=== PATIENT | female | born 2000 | race African-American/Black ===

== ENCOUNTER 2020-08-20 18:21 | Emergency (ER) | payer OTHER, SELFPAY ==
--- NOTE | 2020-08-20 18:25 | ED.URI ---
HPI - URI/Sore Throat General Chief Complaint: Upper Respiratory Infection Stated Complaint: Cold Sx Time Seen by Provider: 08/20/20 18:41 Source: patient and RN notes reviewed Mode of arrival: ambulatory Limitations: no limitations History of Present Illness HPI Narrative: 19-year-old female presents with concern for 2-day history of nasal congestion, rhinorrhea, hot sweats, cold flashes, fatigue. She denies sore throat, cough, fever, body aches. Reports she has been taking Mucinex, vitamin C, zinc and drinking orange juice. Denies any known sick contacts. MD elicited complaint: nasal congestion Related Data Home Medications Medication Instructions Recorded Confirmed albuterol 1 mcg INHALATION 08/20/20 Allergies Allergy/AdvReac Type Severity Reaction Status Date / Time No Known Allergies Allergy Verified 08/20/20 18:40 Review of Systems Review of Systems: Narrative: CONSTITUTIONAL: Denies malaise or fever. Reports chills, sweats, fatigue EYES: Denies visual changes, redness, or discharge. ENT: Reports rhinorrhea, congestion. Denies sinus pain, otalgia and sore throat. CARDIOVASCULAR: Denies chest pain, palpitations, or edema. RESPIRATORY: Denies cough or dyspnea. GASTROINTESTINAL: Denies abdominal pain, nausea, vomiting, diarrhea SKIN: Denies rash or itching. MUSCULOSKELETAL: Denies myalgia. NEUROLOGIC: Denies headache. All systems reviewed & are unremarkable except as noted in HPI and below PMFSH Social History Social History Gender identity (if verbalized by the patient): Female Comments At time of signature, agree with nursing past medical, surgical, social and family history. There is no relevant family history pertinent to the presenting complaint Exam Narrative: Exam Narrative: GENERAL: Well-appearing, well-nourished, and in no acute distress. HEAD: Normocephalic EYES: PERRLA, conjunctivae clear ENT: Nares clear, turbinates edematous and erythematous, clear discharge. Mucous membranes moist. TM pearly jameson with dull light reflex bilaterally; no tragal tenderness. Oropharynx not erythematous without lesions. Tonsils not enlarged and without exudate, no drooling, no hoarseness, no trismus, uvula midline. NECK: Supple. No lymphadenopathy CHEST: Clear to auscultation, breath sounds equal. No wheezing, rhonchi, rales, or stridor. No respiratory distress, speaks in full sentences. HEART: Regular rate and rhythm. No murmur heard. SKIN: Warm, dry, no rash. NEURO: Alert and oriented x3. PSYCH: Normal mood and affect Course Course Emergency Course: Patient is aware of diagnosis, understands and agrees to treatment plan. Anticipatory guidance given. Patient agrees to follow-up as directed and is aware of reasons to seek care at the emergency department. Portions of this record may have been created with voice recognition software Vital Signs Vital signs: Vital Signs Temperature 98.9 F 08/20/20 18:33 Pulse Rate 78 08/20/20 18:33 Respiratory Rate 16 08/20/20 18:33 Blood Pressure 119/72 08/20/20 18:33 Pulse Oximetry 99 08/20/20 18:33 Temperature 98.9 F 08/20/20 18:33 Pulse Rate 78 08/20/20 18:33 Respiratory Rate 16 08/20/20 18:33 Blood Pressure 119/72 08/20/20 18:33 Pulse Oximetry 99 08/20/20 18:33 Reviewed. MDM - URI/Sore Throat MDM Narrative Medical decision making narrative: Differential diagnosis considered: Stinson virus, strep pharyngitis, allergic rhinitis, upper respiratory tract infection, sinusitis, rhinosinusitis, nasopharyngitis. viral pharyngitis, otitis media, otitis externa, pneumonia, bronchitis, viral cough syndrome, viral syndrome, and influenza. Exam findings show no acute concerns or changes; patient is non-toxic appearing and is in no distress. Patient is appropriate for outpatient treatment and follow-up. Critical Care Time Critical Care Time Critical Care Time: No Discharge Plan Discharge Clinical Impression: Upper respiratory infection
[2020-08-20 18:33] VITALS: BP 119/72; PULSE 78; RESP 16; TEMP 37.2; O2SAT 99
== END 2020-08-20 18:58 | disposition home or self-care (01) ==
PROVIDERS: Emergency Provider Nurse Practitioner
DX: J06.9 Acute upper respiratory infection, unspecified (principal); Z20.828 Contact with and (suspected) exposure to other viral communicable diseases; J45.909 Unspecified asthma, uncomplicated
CPT/HCPCS: 99213; G0463

== ENCOUNTER 2020-08-21 08:00 | Outpatient (NON) | payer OTHER, SELFPAY ==
[2020-08-21 22:02] LABS: SARS-CoV-2 RNA PCR Negative
== END 2020-08-21 08:01 ==
PROVIDERS: Visit Provider Nurse Practitioner
DX: Z20.828 Contact with and (suspected) exposure to other viral communicable diseases (principal); J06.9 Acute upper respiratory infection, unspecified
CPT/HCPCS: 87635; C9803; U0003

== ENCOUNTER 2020-09-15 14:58 | Emergency (ER) | payer OTHER, SELFPAY ==
--- NOTE | ~2020-09-15 | XR_ITS ---
EXAMINATION: XR chest 2V DATE: 09/15/2020 15:45 INDICATION: Nonproductive cough. TECHNIQUE: Frontal and lateral views of the chest were obtained. COMPARISON: Chest single view 07/01/2017, chest CT 07/01/2017 FINDINGS: The chest demonstrates clear lungs without pneumonia, pleural effusion, or pneumothorax. Th e heart size is normal. IMPRESSION: 1. No acute cardiopulmonary disease. Reviewed, dictated and finalized at [facility]
[2020-09-15 15:10] VITALS: BP 102/81; PULSE 108; RESP 16; TEMP 38; O2SAT 98
--- NOTE | 2020-09-15 15:14 | ED.URI ---
HPI - URI/Sore Throat General Chief Complaint: Upper Respiratory Infection Stated Complaint: SOB Time Seen by Provider: 09/15/20 15:14 Source: patient Mode of arrival: ambulatory Limitations: no limitations History of Present Illness HPI Narrative: Rosaline Claire is a 19 yo female - with URI symptoms of fever, congestion. Fever today 100.3, not taken anything for fever , feels congested and tired . tested for covid on 08/21, negative, states has been quarantined since the test ; states that she wants to be evaluated Related Data Home Medications Medication Instructions Recorded Confirmed albuterol 2 mcg INHALATION DAILY 08/20/20 09/15/20 Allergies Allergy/AdvReac Type Severity Reaction Status Date / Time No Known Allergies Allergy Verified 09/15/20 15:04 Review of Systems Review of Systems: Narrative: CONSTITUTIONAL: has fever, chills, sweats. EYES: Denies visual changes, redness, discharge. ENT: Denies rhinorrhea, congestion, sore throat, otalgia. CARDIOVASCULAR: Denies chest pain, palpitations, edema. RESPIRATORY: Denies dyspnea, mild wheezing, mild cough GASTROINTESTINAL: Denies abdominal pain, nausea, vomiting, diarrhea. GENITOURINARY: Denies dysuria, hematuria, abnormal discharge SKIN: Denies rash or itching. NEUROLOGIC: Denies numbness, or focal weakness. PSYCHIATRIC: Denies anxiety or depression. PMFSH Past Medical History Medical History Asthma Family History Family History Other Diabetes mellitus Hypertension Social History Social History Smoking status: Never smoker Alcohol intake: never Gender identity (if verbalized by the patient): Female Comments At time of signature, I agree with nursing past medical, surgical, social and family history. There is no relevant family history pertinent to the presenting complaint. Exam Narrative: Exam Narrative: GENERAL: This is a well-nourished, well-developed patient, in mild distress. HEAD: normocephalic, atraumatic. EYES: Sclera clear/white. Vision is grossly intact. EARS: External ears normal, auditory canals clear and without drainage, TMs normal without perforation. Hearing grossly intact. NOSE: External nose normal without nasal discharge, nares with redness, has rhinorrhea. THROAT: Mucous membranes moist, posterior pharynx erythema NECK: Neck supple, non-tender CARDIOVASCULAR: Regular rate and rhythm without murmurs, gallops, or rubs. RESPIRATORY: Cloarse to auscultation. Breath sounds equal bilaterally. No wheezes, rales, or rhonchi. GASTROINTESTINAL: Abdomen soft, non-tender, SKIN: warm, intact with no suspicious lesions or rash, good texture and turgor. NEURO: awake, alert, and oriented to person, place and time. There were no obvious focal neurologic abnormalities. Steady gait EXTREMITIES: Normal range of motion. BACK: Nontender without deformity Course Course Emergency Course: Patient was tested for Covid 2 weeks ago and has been in quarantine. Today has cough and fever, feeling achy Flu swab- neg a/b; chest Xray result: no acute cardiopulmonary process Patient instructed to take Tylenol or ibuprofen for fever; hydrate well- started on prednisone, Robitussin - has inhaler at home Vital Signs Vital signs: Vital Signs Temperature 100.4 F H 09/15/20 15:10 Pulse Rate 108 H 09/15/20 15:10 Respiratory Rate 16 09/15/20 15:10 Blood Pressure 102/81 09/15/20 15:10 Pulse Oximetry 98 09/15/20 15:10 Temperature 100.4 F H 09/15/20 15:10 Pulse Rate 108 H 09/15/20 15:10 Respiratory Rate 16 09/15/20 15:10 Blood Pressure 102/81 09/15/20 15:10 Pulse Oximetry 98 09/15/20 15:10 MDM - URI/Sore Throat Differential Diagnosis Differential diagnosis: Likely upper respiratory infection, otitis media, sinusitis, pharyngitis and other L
== END 2020-09-15 16:00 | disposition home or self-care (01) ==
LOC: EXPCOLL 15:04
PROVIDERS: Emergency Provider Nurse Practitioner
DX: J06.9 Acute upper respiratory infection, unspecified (principal); J45.909 Unspecified asthma, uncomplicated
CPT/HCPCS: 71046; 87804; 99213; G0463

== ENCOUNTER 2022-10-07 16:58 | Emergency (ER) | payer OTHER, SELFPAY ==
[2022-10-07 17:05] VITALS: BP 106/62; PULSE 99; RESP 16; TEMP 37.2; O2SAT 99
--- NOTE | 2022-10-07 17:18 | ED.SKABFB ---
HPI - Skin/Abscess/Foreign Bdy General Chief complaint: Skin/Abscess/Foreign Body Stated complaint: rash Time Seen by Provider: 10/07/22 17:18 Source: patient Mode of arrival: ambulatory Limitations: no limitations History of Present Illness HPI narrative: 22-year-old female presenting for complaint of rash to body, onset last night. She states she woke in the night with itching to the hands, arms, and shoulders. She states she had lip swelling last night and a cough with throat tightness. This has since resolved after taking Benadryl today. She denies known exposure. She endorses sensitive skin and states she stayed with her boyfriend but was told he washed the linens with dye free detergent. Currently reports a few scattered red raised lesions to arms and chest. Denies shortness of breath, wheezing, nausea; lip, tongue, throat swelling or itching. Related Data Allergies Allergy/AdvReac Type Severity Reaction Status Date / Time No Known Allergies Allergy Verified 10/07/22 17:10 Review of Systems Review of Systems: CONSTITUTIONAL: Denies body aches, fever, chills, or sweats. EYES: Denies visual changes, redness, or discharge. ENT: Denies rhinorrhea, congestion CARDIOVASCULAR: Denies chest pain, palpitations, or edema. RESPIRATORY: Denies cough or dyspnea. GASTROINTESTINAL: Denies abdominal pain, nausea, vomiting, or diarrhea. SKIN: per HPI MUSCULOSKELETAL: Denies back pain, joint pain, or myalgia. NEUROLOGIC: Denies headache, numbness, tingling, or weakness. [facility] Past Medical History Medical History Asthma Family History Family History Other Diabetes mellitus Hypertension Social History Social History Smoking status: Never smoker Alcohol intake: never Gender identity (if verbalized by the patient): Female Comments At time of signature, I have reviewed and agree with nursing past medical, surgical, social and family history unless otherwise noted. Please see nursing chart for further information. There is no relevant family history pertinent to the presenting complaint Exam Narrative: GENERAL: Well-appearing HEAD: Normocephalic, atraumatic. EYES: conjunctivae clear, and EOMI. ENT: Mucous membranes moist. Oropharynx without edema, erythema or lesions. NECK: Supple. No lymphadenopathy CHEST: Clear to auscultation. HEART: Regular rate and rhythm. SKIN: Warm, dry. Scattered areas of urticaria to arms and upper shoulders; reviewed pictures of urticaria and lip swelling from the night NEURO: Alert and oriented x3. Course Course Emergency Course: Patient is aware of diagnosis, understands and agrees to treatment plan. Anticipatory guidance given. Patient agrees to follow-up as directed and is aware of reasons to seek care at the emergency department. Portions of this record may have been created with voice recognition software Level of Care: Express Care Visit Vital Signs Vital signs: Vital Signs Temperature 99.0 F 10/07/22 17:05 Pulse Rate 99 10/07/22 17:05 Respiratory Rate 16 10/07/22 17:05 Blood Pressure 106/62 10/07/22 17:05 Pulse Oximetry 99 10/07/22 17:05 Oxygen Delivery Room Air 10/07/22 17:05 Temperature 99.0 F 10/07/22 17:05 Pulse Rate 99 10/07/22 17:05 Respiratory Rate 16 10/07/22 17:05 Blood Pressure 106/62 10/07/22 17:05 Pulse Oximetry 99 10/07/22 17:05 Oxygen Delivery Room Air 10/07/22 17:05 Reviewed MDM - Skin/Abscess/Foreign Bdy MDM Narrative Medical decision making narrative: Advised supportive measures and signs/symptoms to go to the ER. Pt is appropriate for outpt treatment and f/u. Instructed patient to go to nearest ER immediately for any worsening symptoms including but not limited to: fever, sore throat, chest pain, trouble breathing, o
== END 2022-10-07 17:30 | disposition home or self-care (01) ==
PROVIDERS: Emergency Provider Nurse Practitioner Family
DX: L50.9 Urticaria, unspecified (principal)
CPT/HCPCS: 99213; G0463

== ENCOUNTER 2023-02-18 16:22 | Emergency (ER) | payer OTHER, SELFPAY ==
--- NOTE | ~2023-02-18 | CT_ITS ---
CT of the Abdomen and Pelvis: Indication: Abdominal pain Technique: 2.5 mm axial scans were obtained through the abdomen and pelvis following intravenous adm inistration of 100 cc of Omnipaque 350. Dose reduction technique was used on this scan by utilizing a utomated exposure control and iterative reconstruction technique. The dose-length product (DLP) was 3 39.61 mGy-cm. Findings: Scans through the lung bases are unremarkable. The liver, spleen, pancreas, gallbladder, adrenals and kidneys are within normal limits. No evidence of aortic aneurysm. No lymphadenopathy. No bowel obstruction or bowel wall thickening. There is no evidence to suggest acute appendicitis. Images through the pelvis were performed. Urinary bladder unremarkable. No adnexal mass seen. No asci victorino. Impression: No significant abnormalities seen. Reviewed, dictated and finalized at [facility]. Impression: No significant abnormalities seen.
--- NOTE | ~2023-02-18 | US_ITS ---
Pelvic ultrasound. Clinical History: Left lower quadrant pain Technique: Realtime transabdominal and transvaginal scanning of the pelvis was performed. Color flow Doppler and Doppler spectral analysis were performed. Findings: The uterus is anteverted. The endometrial stripe has a thickness of 8 mm. No focal mass is identified. The right ovary measures 3.8 x 2.7 x 2.9 cm. No significant right ovarian or adnexal mass is seen. The left ovary measures 4.2 x 2.5 x 2.4 cm. No significant left ovarian or adnexal mass is seen. Vascular flow present in both ovaries on Doppler spectral analysis. There is no evidence of free fluid in the cul de sac. Impression: Unremarkable pelvic ultrasound. Reviewed, dictated and finalized at [facility]. Impression: Unremarkable pelvic ultrasound.
[2023-02-18 16:46] VITALS: BP 127/84; PULSE 86; RESP 18; TEMP 36.7; O2SAT 95
[2023-02-18 17:18] LABS: Basophils Percent Auto 0.4 % (0.2-1.2); Eosinophils Absolute Auto 0.2 K/mm3 (0-0.3); Eosinophils Percent Auto 3.1 % (0-4.4); Hematocrit 37.8 % (37.0-47.0); Hemoglobin 12.1 g/dL (12.0-15.0); Immature Granulocyte Absolute 0.02 K/mm3 (0.00-0.031); Immature Granulocyte Percent A 0.3 % (0-0.5); Immature Platelet Fraction Pct 19.3 % (0.9-11.2); Lymphocytes Absolute Auto 2.38 K/mm3 (0.9-3.2); Lymphocytes Percent Auto 30.9 % (18.3-44.2); Mean Platelet Volume 14.3 fl (7.4-10.4); Monocytes Absolute Auto 0.8 K/mm3 (0.1-0.6); Monocytes Percent Auto 10.1 % (2.6-8.5); Neutrophils Absolute Auto 4.3 K/mm3 (1.3-6.7); Neutrophils Percent Auto 55.2 % (45.5-73.1); Platelet Count Result 198 k/mm3 (150-375); Red Blood Count 3.67 M/mm3 (4.2-5.4); Red Cell Distribution Width 11.7 % (11.5-14.5); White Blood Count 7.7 K/mm3 (4.5-10.0)
[2023-02-18 17:26] LABS: Alanine Aminotransferase 23 U/L (6-35); Albumin Level 4.5 g/dL (3.5-5.1); Alkaline Phosphatase 81 U/L (38-126); Anion Gap 8 mmol/L (8-16); Aspartate Amino Transferase 56 U/L (14-36); Bilirubin,Total 0.6 mg/dL (0.2-1.3); Blood Urea Nitrogen 10 mg/dL (7-17); Calcium 9.1 mg/dL (8.4-10.2); Carbon Dioxide 26 mmol/L (22-30); Chloride 104 mmol/L (98-107); Estimated Glomerular Filt Rate > 60; Glucose 86 mg/dL (65-110); Lipase 37 U/L (23-300); Potassium 4.5 mmol/L (3.4-5.0); Sodium 138 mmol/L (137-145)
[2023-02-18 17:30] LABS: Bacteria Urine 4+ /hpf; Need Manual Microscopic Reviewed; RBC Urine >100 /hpf (0-2); Squamous Epithelial Cell Urine Many /hpf (Few); WBC Urine >100 /hpf
[2023-02-18 17:33] LABS: Appearance Urine Turbid (Clear); Bilirubin Urine 2+ (Negative); Blood Urine 3+ (Negative); Color Urine Red (Yellow); Glucose Urine UA Negative (Negative); Ketones Urine Trace mg/dL (Negative); Leukocyte Esterase Ur 1+ LEU/UL (Negative); Nitrate Urine Negative (Negative); Protein Urine 3+ mg/dL (Negative); Specific Grav Ur 1.025 (1.001-1.035); pH Urine 6.5 (5.0-9.0)
[2023-02-18 17:37] LABS: Add Urine Microscopic? YES
[2023-02-18] MEDS: MORPHINE SULFATE (*CRX) 4 MG/ML INJ IV PUSH (22:47)
[2023-02-18] MEDS: SODIUM CHLORIDE 0.9% IV 1,000 ML 999 ML IV CONT (22:47)
[2023-02-18] MEDS: ONDANSETRON INJ 4 MG/2 ML VIAL IV PUSH (22:47)
[2023-02-18 23:24] VITALS: BP 118/69; PULSE 69; RESP 18; TEMP 36.6; O2SAT 99
--- NOTE | 2023-02-18 23:46 | ED.ABDPAIN ---
HPI - Abdominal Pain General Chief Complaint: Abdominal Pain Stated Complaint: abd pain Time Seen by Provider: 02/18/23 22:02 Source: patient Mode of arrival: ambulatory Limitations: no limitations History of Present Illness HPI narrative: Patient is a 22-year-old female who presents to the ED with report of left lower quadrant abdominal pain. Patient reports pain began around 10 AM this morning was fairly severe in her left lower abdomen. She notes a history of a left-sided ovarian cyst. She contacted her [employer] and was referred to the ED for further evaluation and to rule out torsion. Patient did take Aleve and a Tylenol 3 around 11 AM with some improvement of pain. Pain began returning while in the ED waiting room and patient also developed slight vaginal bleeding. She notes she recently got her nexplanon removed and last had a cycle in September 2022. Patient does report nausea, dysuria, and urinary frequency. She does note a history of interstitial cystitis and frequent UTIs. Denies any fever, diarrhea, constipation. Related Data Allergies Allergy/AdvReac Type Severity Reaction Status Date / Time No Known Allergies Allergy Verified 10/07/22 17:10 Review of Systems Review of Systems: CONSTITUTIONAL: Denies fever, chills, or sweats. CARDIOVASCULAR: Denies chest pain. RESPIRATORY: Denies dyspnea. GASTROINTESTINAL: See HPI. GENITOURINARY: See HPI. SKIN: Denies rash or itching. MUSCULOSKELETAL: Denies back pain, joint pain, or myalgia. All systems reviewed & are unremarkable except as noted in HPI and below PMFSH Past Medical History Medical History Asthma Ovarian cyst Surgical History Surgical History No pertinent past surgical history Family History Family History Other Diabetes mellitus Hypertension Social History Social History Smoking status: Never smoker Alcohol intake: never Gender identity (if verbalized by the patient): Female Exam Narrative: GENERAL: Well appearing, well-nourished, non-toxic, in no acute distress. HEAD: Normocephalic, atraumatic. NECK: Supple. No adenopathy, no masses. RESPIRATORY: Airway patent, respirations nonlabored. Clear to auscultation bilaterally, no rales, rhonchi, wheezing. CARDIOVASCULAR: Regular rate and rhythm without murmurs, rubs, or gallops. Peripheral pulses 2+ and equal bilaterally. ABDOMINAL: Soft, tenderness to palpation in left lower abdomen/pelvic region, nondistended, no hepatosplenomegaly. Normoactive BS. MUSCULOSKELETAL: Moves all extremities. Strength/ROM intact without gross deformities. SKIN: Warm, dry, normal color. No rashes. NEURO: A&O X3. Speech clear. Cranial nerves II-XII grossly intact. Steady gait. No ataxic movements. PSYCHIATRIC: Appropriate mood and affect. Normal interaction. Course Vital Signs Vital signs: Vital Signs Temperature 98.0 F 02/18/23 16:46 Pulse Rate 86 02/18/23 16:46 Respiratory Rate 18 02/18/23 16:46 Blood Pressure 127/84 02/18/23 16:46 Pulse Oximetry 95 02/18/23 16:46 Oxygen Delivery Room Air 02/18/23 16:46 Temperature 98 F 02/19/23 01:51 Pulse Rate 77 02/19/23 01:51 Respiratory Rate 18 02/19/23 01:51 Blood Pressure 122/77 02/19/23 01:51 Pulse Oximetry 99 02/19/23 01:51 Oxygen Delivery Room Air 02/18/23 16:46 MDM - Abdominal Pain MDM Narrative Medical decision making narrative: Patient presented to ED with left lower quadrant abdominal pain, history of ovarian cyst, sent to rule out torsion. Vitals stable upon arrival. Patient with mild LLQ tenderness on exam. CBC without leukocytosis or anemia. CMP unremarkable. UA with lots of blood, 1+ leuk esterase, greater than 100 WBC, 4+ urine bacteria. Patient did report onset
[2023-02-19 01:51] VITALS: BP 122/77; PULSE 77; RESP 18; TEMP 36.6; O2SAT 99
[2023-02-19 03:19] VITALS: BP 133/69; PULSE 70; RESP 18; TEMP 36.6; O2SAT 99
== END 2023-02-19 03:19 | disposition home or self-care (01) ==
PROVIDERS: Emergency Medicine; Emergency Provider Physician Assistant
DX: N30.01 Acute cystitis with hematuria (principal); R10.32 Left lower quadrant pain; N30.10 Interstitial cystitis (chronic) without hematuria; J45.909 Unspecified asthma, uncomplicated
CPT/HCPCS: 36415; 74177; 76830; 76856; 80053; 81001; 81025; 83690; 85025; 85055; 87086; 87088; 96360; 96361; 96365; 96375; 99284; J0696; J2270; J2405; J7030; Q9967

== ENCOUNTER 2023-06-10 16:42 | Emergency (ER) | payer OTHER, SELFPAY ==
[2023-06-10 16:50] VITALS: BP 114/77; PULSE 105; RESP 16; TEMP 38; O2SAT 99
--- NOTE | 2023-06-10 17:07 | ED.URI ---
HPI - URI/Sore Throat General Chief Complaint: Upper Respiratory Infection Stated Complaint: Sore Throat History of Present Illness HPI Narrative: Pt is a 22 y/o female, presents to with 24 hour hx of sore throat, fevers, body aches and chills. She has no rhinorrhea or cough. She denies known strep exposures or otherwise sick contacts. She has taken APAP for fever relief with some improvement. She denies chance of . She has no urinary symptoms but endorses being prone to UTIs. Related Data Home Medications Medication Instructions Recorded Confirmed oxybutynin chloride 10 mg 10 mg PO DAILY 06/10/23 06/10/23 tablet,extended release 24 hr Allergies Allergy/AdvReac Type Severity Reaction Status Date / Time No Known Allergies Allergy Verified 06/10/23 16:45 Review of Systems Constitutional: Comments: refer to HPI ENT: Comments: refer to HPI Respiratory: Comments: refer to HPI, no cough, CP or SOB Musculoskeletal: Comments: diffuse myalgias, back is achy PMFSH Past Medical History Medical History Asthma Ovarian cyst Surgical History Surgical History No pertinent past surgical history Family History Family History Other Diabetes mellitus Hypertension Social History Social History Smoking status: Never smoker Alcohol intake: never Gender identity (if verbalized by the patient): Female Exam Const: General: healthy appearing, no acute distress and alert Orientation/consciousness: patient oriented x3 Limitations: no limitations HENMT: Head: normal to inspection Ears: external ears normal and TM's normal bilaterally Face/Nose/Sinus: Normal external nose present Face and sinus: normal facial exam and sinuses nontender Mouth: Yes Normal oral and palatal mucosa present, Yes lip normal and Yes moist mucous membranes Teeth and gingiva: dentition normal Throat: uvula midline Other: pt's tonsils are 2+ bilaterally and erythematous. There is palatal petechiae present. No exudate NO trismus Neck: Other: a few small anterior cervical nodes are palpable and tender. No posterior chain lymphadenopathy, no nuchal rigidity Resp: Effort & Inspection: normal respiratory effort Auscultation: clear to auscultation bilaterally Cardio: Rate: regular rate Rhythm: regular rhythm Other: HR 98 at PMI Back/Spine/Pelvis: Back: no CVA tenderness Skin: General skin exam: normal color Rashes: no rashes Neuro: General: patient oriented x3 and moves all extremities Cranial nerves: Yes Nystagmus not present Speech: normal speech Gait exam (Neuro): Normal gait present Extrem: General: normal to inspection Course Course Emergency Course: strep and urinalysis, both negative. Exam concerning for strep, plan to treat based on Centor score. Pt is agreeable with plan. Level of Care: Express Care Visit (39220) Vital Signs Vital signs: Vital Signs Temperature 38.0 C H 06/10/23 16:50 Pulse Rate 105 H 06/10/23 16:50 Respiratory Rate 16 06/10/23 16:50 Blood Pressure 114/77 06/10/23 16:50 Pulse Oximetry 99 06/10/23 16:50 Oxygen Delivery Room Air 06/10/23 16:50 Temperature 38.0 C H 06/10/23 16:50 Pulse Rate 105 H 06/10/23 16:50 Respiratory Rate 16 06/10/23 16:50 Blood Pressure 114/77 06/10/23 16:50 Pulse Oximetry 99 06/10/23 16:50 Oxygen Delivery Room Air 06/10/23 16:50 MDM - URI/Sore Throat MDM Narrative Medical decision making narrative: oral abx, amoxil BID for 10 days, replace toothbrush, continue OTC APAP and MOtrin for fevers as directed. PCP FU in 3 days if symptoms are not resolving. Differential Diagnosis Differential diagnosis: Likely upper respiratory in
== END 2023-06-10 17:25 | disposition home or self-care (01) ==
PROVIDERS: Emergency Provider Nurse Practitioner Family
DX: J03.90 Acute tonsillitis, unspecified (principal); J45.909 Unspecified asthma, uncomplicated
CPT/HCPCS: 81003; 87081; 87880; 99213; G0463

== ENCOUNTER 2023-09-29 15:57 | Emergency (ER) | payer OTHER, SELFPAY ==
[2023-09-29 16:19] VITALS: BP 115/74; PULSE 100; RESP 16; TEMP 36.6; O2SAT 99
--- NOTE | 2023-09-29 16:42 | ED.FEMALEGU ---
HPI - Female Genitourinary General Chief complaint: Urogenital-Female Stated complaint: UTI Time Seen by Provider: 09/29/23 16:42 Source: patient, RN notes reviewed and old records reviewed Mode of arrival: ambulatory Limitations: no limitations History of Present Illness HPI Narrative: 23-year-old female presents to the [facility] with complaints of a UTI. Patient reports urgency, burning with urination for a couple of days. Has a history of UTIs. Patient requesting test Related Data Home Medications Medication Instructions Recorded Confirmed oxybutynin chloride 10 mg 10 mg PO DAILY 06/10/23 06/10/23 tablet,extended release 24 hr Allergies Allergy/AdvReac Type Severity Reaction Status Date / Time No Known Allergies Allergy Verified 09/29/23 16:48 Review of Systems Review of Systems: All systems reviewed & are unremarkable except as noted in HPI and below Constitutional: Constitutional: Reports no additional constitutional complaints Eyes: Eyes: Reports no additional eye complaints ENT: Reports system reviewed and no additional complaints, except as documented Cardiovascular: Cardiovascular: Reports no additional cardiovascular complaints, Denies chest pain and Denies dyspnea Respiratory: Respiratory: Reports no additional respiratory complaints, Denies chest congestion, Denies cough and Denies dyspnea Gastrointestinal: Gastrointestinal: Reports no additional gastrointestinal complaints, Denies abdominal pain, Denies nausea and Denies vomiting Genitourinary: Genitourinary: Reports as per HPI and Reports dysuria Musculoskeletal: Musculoskeletal: Reports no additional musculoskeletal complaints Integumentary/Breasts: Skin/Breast: Reports system reviewed and no additional complaints, except as docu Neurologic: Reports system reviewed and no additional complaints, except as documented Psychiatric: Psychiatric: Reports no additional psychiatric complaints Allergic/Immunologic: Allergic/Immunologic: Reports no additional allergic/immunologic complaints [facility] Past Medical History Medical History Asthma Ovarian cyst Surgical History Surgical History No pertinent past surgical history Family History Family History Other Diabetes mellitus Hypertension Social History Social History Smoking status: Never smoker Alcohol intake: never Gender identity (if verbalized by the patient): Female Comments At the time of my signature, I reviewed and agree with the nursing past medical, surgical, social, and family history. There is no relevant family history pertinent to the patient complaint. Exam Const: General: cooperative, healthy appearing, comfortable, no acute distress, well developed, alert and well nourished Nutritional Appearance: well nourished Orientation/consciousness: patient oriented x3 Limitations: no limitations HENMT: Head: normal to inspection Ears: hearing grossly normal bilaterally and external ears normal Face/Nose/Sinus: Normal external nose present, Normal nares present, Normal nasal mucous membranes and turbinates present, normal facial exam and face symmetric Face and sinus: normal facial exam and face symmetric Mouth: Yes Normal oral and palatal mucosa present, Yes lip normal and Yes moist mucous membranes Throat: posterior oropharynx normal and uvula midline Eyes: General: appearance normal, both eyes and all related structures Alignment and Position: alignment normal Periorbital: periorbital findings normal Pupils: Equal, round and reactive pupils present EOM: EOMs intact bilaterally Neck: Neck: normal visual inspection, full ROM, no lymphadenopathy and no meningeal signs Chest: Chest palpation & inspection: normal inspection of the chest
== END 2023-09-29 17:01 | disposition home or self-care (01) ==
PROVIDERS: Emergency Provider Nurse Practitioner
DX: N39.0 Urinary tract infection, site not specified (principal)
CPT/HCPCS: 81003; 81025; 87086; 99213; G0463